=== PATIENT | female | born 1950 | race American Indian/Alaskan Native ===

== ENCOUNTER 2017-10-18 21:43 | Emergency (ER) | payer OTHER ==
[2017-10-19] MEDS ORDERED: MOTRIN PO ONE (07:55)
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
[2017-10-19 08:37] VITALS: BP 150/92
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
== END 2017-10-19 09:41 | disposition home or self-care (01) ==
LOC: ED 21:43
DX: S80.12XA Contusion of left lower leg, initial encounter (principal); V49.49XA Driver injured in collision with other motor vehicles in traffic accident, initial encounter; Y93.89 Activity, other specified; Y92.89 Other specified places as the place of occurrence of the external cause; Y99.8 Other external cause status
CPT/HCPCS: 70450; 72125